=== PATIENT | male | born 1980 | race Caucasian/White ===

== ENCOUNTER 2018-11-16 08:29 | Emergency (ER) | payer OTHER ==
[~2018-11-16] VITALS: Ht 162.6 cm; Wt 77.1 kg
[~2018-11-16 08:29] MED LIST: HYDR1TAB94 PO; MOTION RELIEF25 MG PO
[2018-11-16] MEDS ORDERED: IBUP600 PO (09:02)
[2018-11-16] MEDS ORDERED: Percocet 5-3251 EACH PO (09:02)
[2018-11-16] MEDS ORDERED: Robaxin500 MG PO (09:02)
[2018-12-05] MEDS ORDERED: CEPH500 PO (14:20)
== END 2018-11-16 09:29 | disposition home or self-care (01) ==
LOC: ER 08:29
DX: M54.5 Low back pain (principal); Z88.0 Allergy status to penicillin; Z79.899 Other long term (current) drug therapy; X50.9XXA Other and unspecified overexertion or strenuous movements or postures, initial encounter
CPT/HCPCS: 96372; 99283-25; A9270-GY; J1885

== ENCOUNTER → 2019-06-22 | Outpatient (CLI) | payer OTHER ==
[~2019-06-22] MED LIST changes: +CEPH500 PO; +IBUP600 PO; +Percocet 5-3251 EACH PO; +Robaxin500 MG PO
[2019-06-23 07:07] LABS: Stool Occult Bld Immuno 1 Negative (NEGATIVE)
== END ==
LOC: LAB SHORT 08:30 → LAB 08:30
PROVIDERS: Nurse Practitioner Family
DX: Z12.11 Encounter for screening for malignant neoplasm of colon (principal)
CPT/HCPCS: G0328

== ENCOUNTER 2022-10-13 06:31 | Emergency (ER) | payer OTHER ==
[~2022-10-13] VITALS: Ht 162.6 cm; Wt 74.8 kg
[2022-10-13] MEDS ORDERED: ZANAFLEX413 PO (07:54)
[2022-10-13 08:29] VITALS: BP 145/81
== END 2022-10-13 08:31 | disposition home or self-care (01) ==
LOC: ER 06:31
DX: S46.911A Strain of unspecified muscle, fascia and tendon at shoulder and upper arm level, right arm, initial encounter (principal); F17.200 Nicotine dependence, unspecified, uncomplicated; Z88.0 Allergy status to penicillin; W17.89XA Other fall from one level to another, initial encounter
CPT/HCPCS: 99283

== ENCOUNTER → 2022-12-13 | Outpatient (CLI) | payer OTHER ==
[~2022-12-13] MED LIST changes: +ZANAFLEX413 PO
== END ==
LOC: LAB SHORT 17:36 → LAB 17:36
DX: K14.3 Hypertrophy of tongue papillae (principal)
CPT/HCPCS: 87070; 87205